=== PATIENT | male | born 1940 | race Caucasian/White ===

== ENCOUNTER 2018-02-24 07:48 | Day surgery (SDC) | payer OTHER ==
[2018-02-21 18:06] VITALS: BMI 39.1
[2018-02-24 09:49] LABS: ANION GAP 9 MMOL/L (8-16); BLOOD UREA NITROGEN 61 mg/dL (7-18); CALCIUM 8.9 mg/dL (8.5-10.1); CHLORIDE 111 mmol/L (98-107); CO2 23 mmol/L (21-32); CREATININE 4.2 mg/dL (0.55-1.3); GLUCOSE,RANDOM 124 mg/dL (74-106); POTASSIUM 4.2 mmol/L (3.5-5.1); SODIUM 143 mmol/L (136-145)
--- NOTE | 2018-02-24 11:34 | HP ---
History & Physical Update - History History: No Change - Physical Physical: No Change - Assessment Currently as noted:: Malfunction of recently placed PD catheter - Plan Currently as noted:: Replacement of PD catheter
[2018-02-24] MEDS ORDERED: PROPOFOL 20 ML ONE (11:40)
[2018-02-24] MEDS ORDERED: MIDAZOLAM HCL 2 MG/2 ML SINGLE DOSE VIAL ONE (11:40)
[2018-02-24] MEDS ORDERED: oxyCODONE HCL 5 MG TABLET PO PRN ×2 (11:45→14:06)
[2018-02-24] MEDS ORDERED: PROMETHAZINE HCL 25 MG/1 ML VIAL IVPUSH PRN (11:45)
[2018-02-24] MEDS ORDERED: ONDANSETRON 4 MG/2 ML VIAL IVPUSH PRN (11:45)
[2018-02-24] MEDS ORDERED: ROCURONIUM BROMIDE 50 MG/5 ML VIAL ONE (11:54)
[2018-02-24] MEDS ORDERED: CLINDAMYCIN 300 MG PREMIX BAG IVPB ONE (12:01)
[2018-02-24] MEDS ORDERED: CLINDAMYCIN PHOSPHATE 600 MG/4 ML VIAL ONE (12:02)
[2018-02-24] MEDS ORDERED: BUPIVACAINE HCL/PF 0.5% (5MG/ML) 10 ML VIAL ONE (12:02)
[2018-02-24] MEDS ORDERED: BUPIVACAINE HCL/PF 0.5% (5MG/ML) 10 ML VIAL IJ ONE (12:30)
[2018-02-24] MEDS ORDERED: BACITRACIN 15 GM TUBE TOPICAL OINTMENT ONE (13:33)
--- NOTE | 2018-02-24 13:55 | OP ---
Operative Note - Note: Operative Date: 02/24/18 Pre-Operative Diagnosis: Renal failure, malfunctioning PD catheter Operation: Removal PD catheter. Placement PD catheter. Lysis of adhesions Findings: Intrabdominal adhesion around PD catheter Implants: PD catheter Post-Operative Diagnosis: Same as Pre-op Surgeon: Herman Navarro Electrical Engineering Teacher: Adelaida Hernandez Anesthesiologist/EPIDEMIOLOGIST: Reymundo Brooks Anesthesia: General
[2018-02-24] MEDS ORDERED: ACETAMINOPHEN 325 MG TABLET (FP) PO PRN (14:06)
[2018-02-24] MEDS ORDERED: ONDANSETRON 4 MG/2 ML VIAL ONE ×2 (14:41→15:40)
[2018-02-24] MEDS ORDERED: ONDANSETRON 4 MG/2 ML VIAL IVPUSH ONE (15:53)
[2018-02-24] MEDS ORDERED: METOCLOPRAMIDE HCL INJECTION 10 MG/2 ML VIAL ONE (17:07)
[2018-02-24] MEDS ORDERED: METOCLOPRAMIDE HCL INJECTION 10 MG/2 ML VIAL IVPUSH ONE (17:17)
[2018-02-24 18:45] VITALS: BP 114/63; PULSE 77; TEMP 97.5
--- NOTE | 2018-02-26 14:21 | OP ---
DATE OF OPERATION: 02/24/2018 SURGEON: Herman Toney MD RETAIL DELIVERY DRIVER: EMETERIO Meade PROCEDURES: 1. Laparoscopy. 2. Lysis of adhesions. 3. Placement of peritoneal dialysis catheter and removal of old peritoneal dialysis catheter. PREOPERATIVE DIAGNOSIS: 1. Malfunctioning peritoneal dialysis catheter. 2. Renal failure. POSTOPERATIVE DIAGNOSIS: 1. Malfunctioning peritoneal dialysis catheter. 2. Renal failure. 3. Intraabdominal adhesions. ANESTHESIA: General. ANESTHESIOLOGIST: Reymundo Brooks MD OPERATIVE FINDINGS: The previous peritoneal dialysis catheter was encased in adhesions of fatty tissue between the anterior abdominal wall and the large intestine. There were no other significant adhesions noted but there was abundant adipose tissue along the abdominal wall. OPERATIVE PROCEDURE: Following routine patient identification, general anesthesia was induced. A timeout was performed. A Veress needle was inserted atraumatically through the umbilicus. Pneumoperitoneum was established at 15 mmHg pressure with carbon dioxide. A 5-mm Optiview port was then placed in the mid-line below the xiphoid process. Abdominal exploration was then carried out. A second 5-mm port was placed in the left abdominal wall. An atraumatic grasper was used to pull the PD catheter out of the pelvis and out of the adhesions. It was then able to be flushed. The catheter returned to its normal position in the pelvis. The pneumoperitoneum was evacuated and one liter of saline was run in through the catheter. When the bag was dropped to the floor, a very little fluid drained out and it was felt that this catheter would not be functional. Therefore, pneumoperitoneum was reestablished. Adhesions of fatty tissue in the pelvis were divided with a LigaSure device to free up the pelvic area. An 8-mm bladeless trocar was then advanced through a small incision to the right of the umbilicus to the underside of the peritoneum and then directed distally to enter the peritoneal cavity approximately 6 cm from these. A new curled Tenckhoff catheter was then straightened with a wire and advanced into the pelvis in a position where it appeared to have better access for drainage. The 8-mm port was removed, leaving the inner cuff just at the level of the fascia. An incision was then made on the upper aspect of the abdomen. An extension segment was attached to the new dialysis catheter with a titanium adapter which was secured with 2-0 silk ties. Extension tubing was then pulled through a tunneler between the two incisions. It was attached to a curved metal tunneler which was then brought out in the right upper quadrant at the previously marked skin site. The Luer Lock adapter was attached and again, after removing the gas from the abdomen, one liter of saline was run in and then the bag was dropped. The bag was seen to drain approximately 500 mL and was capped. The skin incisions were then closed with interrupted suture of 3-0 Vicryl and subcuticular suture of Biosyn. The old catheter was then removed by reopening the paraumbilical incision and the nichelle from the subcutaneous tissues. These wounds were also closed with sutures of Vicryl and Biosyn. Sterile dressings were applied. The catheter site was dressed with Bio-occlusive dressing and an ABD pad. The patient was then taken to the recovery room in stable condition. HERMAN TONEY M.D. RONALDO/[id number]
== END 2018-02-24 18:25 | disposition home or self-care (01) ==
LOC: JASU-SURG 07:48
PROVIDERS: ATTEND Surgery
PROC: 0WHG43Z Insertion of Infusion Device into Peritoneal Cavity, Percutaneous Endoscopic Approach (ICD-10-PCS; principal; 2018-02-24 10:00)
DX: T85.898A Other specified complication of other internal prosthetic devices, implants and grafts, initial encounter (principal); I12.0 Hypertensive chronic kidney disease with stage 5 chronic kidney disease or end stage renal disease; N18.6 End stage renal disease; Z99.2 Dependence on renal dialysis
CPT/HCPCS: 36415; 80048; 94760

== ENCOUNTER 2018-03-19 08:49 | Day surgery (SDC) | payer OTHER ==
[2018-03-18 14:02] VITALS: BMI 39.1
--- NOTE | 2018-03-19 11:12 | HP ---
History & Physical Update - History History: No Change - Physical Physical: No Change - Assessment Assessment: No Change - Plan Plan: No Change (Full H&P in chart done on 03/17/18)
--- NOTE | 2018-03-19 11:39 | HP ---
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 Previously placed PD catheter not draining. History Source: Patient - Past Medical History Allergies/Adverse Reactions: Allergies Allergy/AdvReac Type Severity Reaction Status Date / Time Penicillins Allergy Intermediate Hives Verified 03/19/18 09:29 Renal/: Yes: Renal Failure - Current Medications Current Medications: Home Medications Medication Instructions Recorded Atorvastatin Ca [Lipitor] 40 mg PO HS 02/21/18 Cholecalciferol (Vitamin D3) 1 cap PO DAILY 02/21/18 [Vitamin D3] Febuxostat [Uloric] 40 mg PO DAILY 02/21/18 Furosemide [Lasix] 80 mg PO DAILY 02/21/18 Potassium Citrate 10 meq PO HS 02/21/18 Tamsulosin HCl 0.4 mg PO HS 02/21/18 Fluticasone/Vilanterol [Breo 1 puff IH DAILY 03/18/18 Ellipta 100-25 Mcg INH] Satellite Physical Exam - Physical Examination Vital Signs: Vital Signs Period Temp Pulse Resp BP Sys/Berumen Pulse Ox Last 24 Hr 98.3 F 70 20 136/73 93 General Appearance: Obese ENT: Clear Lung: Clear to auscultation Heart: Regular rate & rhythm Abdomen: Soft, Other (Wounds healing well) Extremities: No edema Satellite Impression/Plan - Impression/Plan Impression: Malfunction PD catheter Operative Procedure: Laparoscopy, revision PD catheter, excision fatty tissue
[2018-03-19] MEDS ORDERED: MIDAZOLAM HCL 2 MG/2 ML SINGLE DOSE VIAL ONE (11:51)
[2018-03-19] MEDS ORDERED: DEXAMETHASONE SOD PHOSPHATE 4 MG/1 ML VIAL ONE ×2 (11:51→13:02)
[2018-03-19] MEDS ORDERED: LIDOCAINE HCL/PF 2% SDV 5ML VIAL ONE (11:51)
[2018-03-19] MEDS ORDERED: BUPIVACAINE HCL/PF 0.5% (5MG/ML) 10 ML VIAL ONE (11:54)
[2018-03-19] MEDS ORDERED: PROPOFOL 20 ML ONE (12:12)
[2018-03-19] MEDS ORDERED: ROCURONIUM BROMIDE 50 MG/5 ML VIAL ONE (12:12)
[2018-03-19] MEDS ORDERED: CLINDAMYCIN 600 MG PREMIX BAG IVPB ONE ×2 (12:16→12:20)
[2018-03-19] MEDS ORDERED: CLINDAMYCIN PHOSPHATE 600 MG/4 ML VIAL ONE (12:20)
[2018-03-19] MEDS ORDERED: ePHEDrine SULFATE 50 MG/1 ML AMPULE ONE (12:24)
[2018-03-19] MEDS ORDERED: PROMETHAZINE HCL 25 MG/1 ML VIAL IVPUSH PRN (12:55)
[2018-03-19] MEDS ORDERED: oxyCODONE HCL 5 MG TABLET PO PRN (12:55)
[2018-03-19] MEDS ORDERED: GLYCOPYRROLATE 0.2 MG/1 ML VIAL ONE (12:58)
[2018-03-19] MEDS ORDERED: NEOSTIGMINE METHYLSULFATE 0.5 MG/ML - 10 ML MDV ONE (12:58)
[2018-03-19] MEDS ORDERED: SODIUM CHLORIDE 1,000 ML IV SCH (13:00)
--- NOTE | 2018-03-19 13:10 | OP ---
Operative Note - Note: Operative Date: 03/19/18 Pre-Operative Diagnosis: Malfunction PD catheter Operation: Revision PD catheter. Laparoscopy Findings: Adhesions surrounding catheter in RLQ. Small bowel and pericolic fat adherent to anterior abdominal wall. Post-Operative Diagnosis: Same as Pre-op Surgeon: Herman Navarro Garage Worker: Jean Claude Lamb Anesthesiologist/ASBESTOS SIDING MECHANIC: Daniel Kat Anesthesia: General
--- NOTE | 2018-03-19 13:26 | SURG ---
Surgery Revenue Cycle Manager Note Revenue Cycle Manager: Jean Claude Lamb PA-C Date of Service: 03/19/18 Diagnosis: Malfunction PD catheter Procedure: Revision PD catheter. Laparoscopy I was present for the entirety of the operative procedure. For further detail, please refer to operative report.
[2018-03-19] MEDS ORDERED: ALBUTEROL SO4 0.083% IH SOL 2.5 MG/3 ML VIAL.NEB. NEB ONE (13:45)
[2018-03-19 15:34] VITALS: TEMP 92
[2018-03-19 17:47] VITALS: BP 131/66; PULSE 75
--- NOTE | 2018-03-22 10:41 | OP ---
DATE OF OPERATION: 03/19/2018 SURGEON: Herman Navarro MD FRONT LOAD TRASH TRUCK DRIVER: EMETERIO Peterson PROCEDURE: Revision of peritoneal dialysis catheter, laparoscopy. PREOPERATIVE DIAGNOSIS: Malfunctioning peritoneal dialysis catheter. POSTOPERATIVE DIAGNOSIS: Malfunctioning peritoneal dialysis catheter. ANESTHESIA: General. ANESTHESIOLOGIST: Daniel Kat MD OPERATIVE FINDINGS: The previously placed peritoneal catheter was encircled with adhesions. There were adhesions of small bowel and fatty tissue to the anterior abdominal wall mainly in the right lower quadrant of the abdomen where the catheter was present. The remainder of the peritoneal catheter had a few filmy adhesions to the midline, but otherwise, was free of scar tissue. OPERATIVE PROCEDURE: Following routine patient identification, general anesthesia was induced. The abdomen was prepped with ChloraPrep. The peritoneal dialysis catheter was additionally prepped at the end with Betadine solution. An attempt to insufflate gas through the catheter met with resistance. Therefore, the Veress needle was inserted through the umbilicus, and pneumoperitoneum established with carbon dioxide to 15 mmHg pressure. A 5-mm port was then placed in the midline above the umbilicus. A 5-mm angled laparoscope was inserted, and abdominal exploration was carried out. A 2nd 5-mm port was placed in the left lower quadrant under direct vision. Using atraumatic grasper, the peritoneal dialysis catheter was retracted from the adhesions back into the free area of the peritoneal cavity. It was able to be positioned in the left lower quadrant area of the pelvis. Careful inspection of the adhesions showed that there were areas of adherence of small bowel loops directly to the abdominal wall, and decision was made not to disturb these for fear of damage to the bowel as well as inciting new adhesions to form around the catheter. Pneumoperitoneum was evacuated. Then 2 L of saline were then run into the peritoneal cavity under gravity drainage with no evidence of resistance. Drainage of the fluid by lowering the bag to the floor level was brisk with approximately 1500 mL evacuated in under 5 minutes. It was felt that the catheter was in a good position and appeared to be functioning well, and decision was made to complete the procedure. The ports were removed. The fascial holes were closed with [id number] sutures of 0 Vicryl. The skin incisions were closed with subcuticular sutures of 3-0 Vicryl and subcuticular 4-0 Biosyn. Dermabond glue was applied as a dressing, and the patient was extubated and taken to the recovery room in stable condition. Halie CENTENO/[id number]
== END 2018-03-19 17:30 | disposition home or self-care (01) ==
LOC: JASU-SURG 08:49
PROVIDERS: ATTEND Surgery
PROC: 0WHG43Z Insertion of Infusion Device into Peritoneal Cavity, Percutaneous Endoscopic Approach (ICD-10-PCS; principal; 2018-03-19 10:30)
DX: T82.898A Other specified complication of vascular prosthetic devices, implants and grafts, initial encounter (principal); I12.0 Hypertensive chronic kidney disease with stage 5 chronic kidney disease or end stage renal disease; N18.6 End stage renal disease
CPT/HCPCS: 94760

== ENCOUNTER 2018-06-09 14:19 | Day surgery (SDC) | payer OTHER ==
[2018-06-06 17:35] VITALS: BMI 39.1
--- NOTE | 2018-06-09 15:44 | HP ---
[facility] - Chief Complaint History of Present Illness: 78 year old man with ESRD on PD who developed loss of vision in his right eye. No headaches. ESR and CRP elevated. History Source: Patient, Medical Record - Past Medical History Allergies/Adverse Reactions: Allergies Allergy/AdvReac Type Severity Reaction Status Date / Time Penicillins Allergy Severe Hives Verified 06/06/18 17:51 Cardiovascular: Yes: HTN Renal/: Yes: Renal Failure - Current Medications Current Medications: Home Medications Medication Instructions Recorded Atorvastatin Ca [Lipitor] 40 mg PO HS 02/21/18 Cholecalciferol (Vitamin D3) 1 cap PO DAILY 02/21/18 [Vitamin D3] Potassium Citrate 10 meq PO HS 02/21/18 Tamsulosin HCl 0.4 mg PO HS 02/21/18 Fluticasone/Vilanterol [Breo 1 puff IH DAILY 03/18/18 Ellipta 100-25 Mcg INH] Prednisone [Prednisone 50 MG 50 mg PO DAILY 06/09/18 TABLETS] Torsemide 100 mg PO DAILY 06/09/18 Satellite Physical Exam - Physical Examination Vital Signs: Vital Signs Period Temp Pulse Resp BP Sys/Berumen Pulse Ox Last 24 Hr 97.9 F 68 20 127/69 95 General Appearance: Obese ENT: Clear Lung: Clear to auscultation Heart: Regular rate & rhythm Abdomen: Soft, Other (PD catheter in place) Extremities: No edema Neurological: Alert, Oriented, Cran Nerves II-XII Intact Satellite Impression/Plan - Impression/Plan Impression: R/O giant cell arteritis Operative Procedure: Right temporal artery biopsy Date to be Performed: 06/09/18
[2018-06-09] MEDS ORDERED: PROPOFOL 20 ML ONE (15:52)
[2018-06-09] MEDS ORDERED: MIDAZOLAM HCL 2 MG/2 ML SINGLE DOSE VIAL ONE (15:52)
[2018-06-09] MEDS ORDERED: SUCCINYLCHOLINE CHLORIDE 200 MG/10 ML VIAL ONE (15:55)
[2018-06-09] MEDS ORDERED: oxyCODONE HCL 5 MG TABLET PO PRN (16:07)
[2018-06-09] MEDS ORDERED: ONDANSETRON 4 MG/2 ML VIAL IVPUSH PRN (16:07)
[2018-06-09] MEDS ORDERED: LIDOCAINE HCL 1%, 10 MG/ML (20ML VIAL) ONE (16:14)
[2018-06-09] MEDS ORDERED: LACTATED RINGERS SOLUTION 1,000 ML IV SCH (16:15)
[2018-06-09] MEDS ORDERED: ACETAMINOPHEN 325 MG TABLET (FP) PO PRN (16:47)
--- NOTE | 2018-06-09 16:47 | OP ---
Operative Note - Note: Operative Date: 06/09/18 Pre-Operative Diagnosis: Temporal arteritis Operation: Right temporal artery biopsy Findings: Normal appearing artery Post-Operative Diagnosis: Same as Pre-op Surgeon: Herman Navarro Anesthesiologist/VENEER STAPLER: Amber Gloria Anesthesia: Fractional Specimens Removed: Portion right temporal artery Estimated Blood Loss (mls): 25
[2018-06-09] MEDS ORDERED: LIDOCAINE HCL 1%, 10 MG/ML (20ML VIAL) PNB ONE (16:49)
[2018-06-09 17:09] VITALS: TEMP 98
[2018-06-09 17:52] VITALS: BP 128/71; PULSE 70
--- NOTE | 2018-06-10 12:19 | OP ---
DATE OF OPERATION: 06/09/2018 SURGEON: Herman Toney MD PROCEDURE: Biopsy right temporal artery. PREOPERATIVE DIAGNOSIS: Rule out temporal arteritis. POSTOPERATIVE DIAGNOSIS: Rule out temporal arteritis. ANESTHESIA: Fractional. ANESTHESIOLOGIST: ZHAO Glroia OPERATIVE FINDINGS: The right superficial temporal artery was normal in appearance and size. There was no evidence of arteritis grossly. DESCRIPTION OF PROCEDURE: Following routine patient identification, the skin of the right mu-ism was prepped with Betadine solution. Time-out was performed. Then 1% lidocaine was infiltrated over the palpable pulse in the superficial temporal artery at the hairline. Skin incision was made and carried through subcutaneous tissues using cautery for hemostasis. The superficial temporal artery was then mobilized for approximately 2 cm of length. It was ligated proximally and distally. Side branches were also ligated and divided. A section of the artery was then removed and sent to Pathology. The wound was closed with interrupted sutures of 4-0 Vicryl and subcutaneous tissues and running subcuticular suture of 4-0 Biosyn on the skin. Dermabond glue was applied as a dressing, and the patient was taken to the recovery room in stable condition. HERMAN TONEY M.D. [id number]
--- NOTE | 2018-06-11 17:29 | PATH ---
Surgical Pathology Report Patient Name: PETER HOLLOWAY Med. Rec. #: [id number] /Age/Gender: 1940 (Age: 78) / M Account: [id number] Location: [facility] SURGICAL Taken: 06/09/2018 Received: 06/10/2018 Reported: 06/11/2018 Physicians: Herman Navarro M.D. Specimen(s) Received TEMPORAL ARTERY BIOPSY Clinical History Giant cell arteritis Final Diagnosis TEMPORAL ARTERY, BIOPSY: MUSCULAR ARTERY WITH NO EVIDENCE OF ARTERITIS. MULTIPLE LEVELS EXAMINED. Electronically Signed Emma Gaffney M.D. Gross Description Received in formalin labeled "temporal artery," are 2 schmid portions of vascular tissue, consistent with temporal artery biopsies. The specimens measure 0.6 and 1.2 cm in length. The specimens are cross sectioned and entirely submitted in one cassette. /06/10/2018 saudi06/10/2018
== END 2018-06-09 17:50 | disposition home or self-care (01) ==
LOC: JASU-SURG 14:19
PROVIDERS: ATTEND Surgery
PROC: 03BS0ZX Excision of Right Temporal Artery, Open Approach, Diagnostic (ICD-10-PCS; principal; 2018-06-09 16:00)
DX: M31.6 Other giant cell arteritis (principal)
CPT/HCPCS: 88305-TC

== ENCOUNTER 2020-11-27 08:46 | Inpatient (IN) | payer OTHER ==
[2020-11-27] MEDS ORDERED: ACETAMINOPHEN 1000 MG/100 ML VIAL (NON FORMULARY) IVPB ONE (09:06)
[2020-11-27 09:17] VITALS: BMI 37.3
[2020-11-27] MEDS ORDERED: LACTATED RINGERS SOLUTION 1000 ML INFUS.BAG IV ONE (09:20)
[2020-11-27] MEDS ORDERED: CEFEPIME HCL/D5W 1 GM/50 ML BAG IVPB ONE (09:28)
[2020-11-27] MEDS ORDERED: ACETAMINOPHEN INJECTION 100 ML IVPB ONE (09:34)
[2020-11-27] MEDS ORDERED: CEFEPIME 1 GM/100 ML BAG IVPB ONE (09:35)
[2020-11-27 10:48] LABS: BASO % 0.9 % (0-2.0); EOS % 0.5 % (0-4.5); HEMATOCRIT 37.6 % (35.4-49); HEMOGLOBIN 12.5 GM/dL (11.7-16.9); LYMPH % 10.7 % (8-40); MCH 31.1 pg (25.7-33.7); MCHC 33.2 g/dl (32.0-35.9); MEAN CELL VOLUME 93.8 fl (80-96); MEAN PLT VOLUME 9.3 fl (7.5-11.1); MONO % 9.1 % (3.8-10.2); NEUT % 78.8 % (42.8-82.8); PLATELET COUNT 305 10^3/uL (134-434); RBC 4.01 M/mm3 (4.00-5.60); RDW 15.1 % (11.9-15.9); WHITE BLOOD COUNT 18.8 K/mm3 (4.0-10.0)
[2020-11-27 10:53] LABS: INR 1.02 (0.83-1.09); PROTHROMBIN TIME (PATIENT) 12.5 SEC (9.7-13.0)
[2020-11-27 10:55] LABS: ACTIVATED PTT 23.8 SECONDS (25.2-36.5)
[2020-11-27 11:07] LABS: CHLORIDE 94 mmol/L (98-107); SODIUM 132 mmol/L (136-145)
[2020-11-27 11:10] LABS: ALBUMIN 2.4 g/dl (3.4-5.0); ANION GAP 14 MMOL/L (8-16); BLOOD UREA NITROGEN 34.7 mg/dL (7-18); CALCIUM 8.7 mg/dL (8.5-10.1); CO2 24 mmol/L (21-32)
[2020-11-27 11:11] LABS: GLUCOSE,RANDOM 160 mg/dL (74-106)
[2020-11-27 11:13] LABS: SGOT/AST 19 U/L (15-37); SGPT/ALT 19 U/L (13-61)
[2020-11-27 11:15] LABS: BILIRUBIN,TOTAL 0.7 mg/dL (0.2-1)
[2020-11-27 11:16] LABS: ALK PHOS 161 U/L (45-117)
[2020-11-27 11:21] LABS: LACTIC ACID 2.8 mmol/L (0.4-2.0)
[2020-11-27 11:22] LABS: CREATININE 9.6 mg/dL (0.55-1.3)
[2020-11-27] MEDS ORDERED: POTASSIUM CHLORIDE TABS 20 MEQ TABLET.ER (FP) PO ONE (12:25)
[2020-11-27] MEDS ORDERED: ACETAMINOPHEN 325 MG TABLET (FP) PO PRN (13:42)
[2020-11-27] MEDS ORDERED: LACTULOSE 20 GM/30 ML UDC (FOR ORAL USE ONLY) PO ONE (15:10)
[2020-11-27] MEDS: PERITONEAL DIALYSIS 1.5% SOLN 2,500 ML IP SCH ×2 (15:30→22:00)
[2020-11-27 15:47] LABS: LACTIC ACID 2.1 mmol/L (0.4-2.0)
[2020-11-27] MEDS ORDERED: ASPIRIN 325 MG ENTERIC COATED TABLET (FP) ONE (15:54)
[2020-11-27] MEDS ORDERED: LACTULOSE 20 GM/30 ML UDC (FOR ORAL USE ONLY) ONE (15:54)
[2020-11-27] MEDS: ASPIRIN 325 MG TABLET PO SCH (16:01)
[2020-11-27] MEDS: TIOTROPIUM BROMIDE 2.5 MCG (SPIRIVA) RESPIMAT INHALER IH SCH (16:01)
[2020-11-27 18:30] LABS: BF WBC & OTHER NUCLEATED CELLS 84 /mm3
[2020-11-27 19:10] LABS: BODY FLUID MACROPHAGES 67 %; BODY FLUID MONOCYTE 18 %
[2020-11-27] MEDS ORDERED: CHLORHEXIDINE GLUCONATE 4% CLEANSER FOR DECOLONIZATION TP SCH (22:00)
[2020-11-27] MEDS: HEPARIN NA (PORCINE) 5,000 UNITS/ML 1ML VIAL SQ SCH (22:23)
[2020-11-27] MEDS: ATORVASTATIN CA 40 MG TABLET (FP) PO SCH (22:23)
[2020-11-28] MEDS: PERITONEAL DIALYSIS 1.5% SOLN 2,500 ML IP SCH ×4 (03:37→22:29)
[2020-11-28 07:33] LABS: BASO % 0.6 % (0-2.0); EOS % 2.4 % (0-4.5); HEMATOCRIT 34.1 % (35.4-49); HEMOGLOBIN 11.3 GM/dL (11.7-16.9); LYMPH % 16.5 % (8-40); MCHC 33.1 g/dl (32.0-35.9); MEAN CELL VOLUME 93.6 fl (80-96); MEAN PLT VOLUME 8.5 fl (7.5-11.1); NEUT % 71.5 % (42.8-82.8); PLATELET COUNT 267 10^3/uL (134-434); RBC 3.64 M/mm3 (4.00-5.60); RDW 14.9 % (11.9-15.9); WHITE BLOOD COUNT 15.2 K/mm3 (4.0-10.0)
[2020-11-28 07:41] LABS: CHLORIDE 95 mmol/L (98-107); SODIUM 133 mmol/L (136-145)
[2020-11-28 07:49] LABS: ANION GAP 12 MMOL/L (8-16); CALCIUM 8.3 mg/dL (8.5-10.1); CO2 26 mmol/L (21-32)
[2020-11-28 07:50] LABS: BLOOD UREA NITROGEN 39.8 mg/dL (7-18); GLUCOSE,RANDOM 126 mg/dL (74-106); MAGNESIUM 1.7 mg/dL (1.8-2.4)
[2020-11-28 07:52] LABS: CHOLESTEROL 153 mg/dL (50-200)
[2020-11-28 07:53] LABS: PHOSPHOROUS 6.1 mg/dL (2.5-4.9); TRIGLYCERIDES 191 mg/dL (0-150)
[2020-11-28 07:54] LABS: HDL CHOLESTEROL 36 mg/dL (40-60); LDL CHOLESTEROL (ONLY SJRH) 83 mg/dL (5-100)
[2020-11-28 08:35] LABS: CREATININE 10.1 mg/dL (0.55-1.3)
[2020-11-28] MEDS ORDERED: PT OWN MED DRAWER 7, Y5N ONE ×2 (09:31→21:01)
[2020-11-28] MEDS: HEPARIN NA (PORCINE) 5,000 UNITS/ML 1ML VIAL SQ SCH ×2 (09:49→21:03)
[2020-11-28] MEDS: TAMSULOSIN HCL 0.4 MG CAP PO SCH (09:49)
[2020-11-28] MEDS: ASPIRIN 325 MG TABLET PO SCH (09:49)
[2020-11-28] MEDS ORDERED: VANCOMYCIN 1 GRAM (PRE-DOCKED) 1,000 MG/250 ML BAG IVPB ONE (11:00)
[2020-11-28] MEDS ORDERED: CEFEPIME HCL 1 GM VIAL (RESTRICTED TO ID) ONE (11:24)
[2020-11-28] MEDS ORDERED: DEXTROSE 5%-WATER 100 ML IVPB ONE (11:25)
[2020-11-28] MEDS: TIOTROPIUM BROMIDE 2.5 MCG (SPIRIVA) RESPIMAT INHALER IH SCH (11:28)
[2020-11-28] MEDS: BUDESONIDE/FORMETEROL FUMARATE 80/4.5 mcg INHALER IH SCH ×2 (11:28→21:04)
[2020-11-28] MEDS: CEFEPIME 1 GM in DEXTROSE 5%-WATER 1 GM/100 ML BAG IVPB SCH (11:29)
[2020-11-28] MEDS ORDERED: GENTAMICIN SO4 0.1% TOPICAL OINTMENT 15 GM/TUBE TUBE TP ONE (12:45)
[2020-11-28] MEDS: MAGNESIUM CL 64 MG TABLET.SA PO SCH (14:06)
[2020-11-28] MEDS: metroNIDAZOLE 500 MG TABLET PO SCH ×2 (14:07→21:03)
[2020-11-28] MEDS: SEVELAMER CARBONATE 800 MG TAB (FP) PO SCH (17:09)
[2020-11-28] MEDS ORDERED: TORSEMIDE 100 MG TABLET PO SCH ×2 (17:15→22:00)
[2020-11-28] MEDS: TORSEMIDE 100 MG TABLET PO SCH (18:09)
[2020-11-28] MEDS: ATORVASTATIN CA 40 MG TABLET (FP) PO SCH (21:03)
[2020-11-28] MEDS: PREGABALIN 25 MG CAPSULE PO SCH (21:03)
[2020-11-28] MEDS ORDERED: CINACALCET HCL 30 MG TAB (FP) PO SCH (22:00)
[2020-11-28] MEDS ORDERED: PREGABALIN 50 MG CAPSULE PO SCH (22:00)
[2020-11-29] MEDS: PERITONEAL DIALYSIS 1.5% SOLN 2,500 ML IP SCH ×4 (04:45→22:39)
[2020-11-29] MEDS ORDERED: SODIUM CHLORIDE 250 ML IV STA (05:34)
[2020-11-29] MEDS: metroNIDAZOLE 500 MG TABLET PO SCH ×3 (05:57→21:08)
[2020-11-29] MEDS: TORSEMIDE 100 MG TABLET PO SCH (07:01)
[2020-11-29] MEDS: TAMSULOSIN HCL 0.4 MG CAP PO SCH (08:27)
[2020-11-29] MEDS: SEVELAMER CARBONATE 800 MG TAB (FP) PO SCH ×3 (08:27→17:18)
[2020-11-29 08:30] LABS: BASO % 0.6 % (0-2.0); EOS % 0.5 % (0-4.5); HEMATOCRIT 34.4 % (35.4-49); HEMOGLOBIN 11.2 GM/dL (11.7-16.9); LYMPH % 8.7 % (8-40); MCH 30.8 pg (25.7-33.7); MCHC 32.6 g/dl (32.0-35.9); MEAN CELL VOLUME 94.6 fl (80-96); MEAN PLT VOLUME 9.1 fl (7.5-11.1); MONO % 8.1 % (3.8-10.2); NEUT % 82.1 % (42.8-82.8); PLATELET COUNT 308 10^3/uL (134-434); RBC 3.63 M/mm3 (4.00-5.60); WHITE BLOOD COUNT 23.1 K/mm3 (4.0-10.0)
[2020-11-29 08:53] LABS: CHLORIDE 94 mmol/L (98-107); SODIUM 133 mmol/L (136-145)
[2020-11-29 09:05] LABS: GLUCOSE,RANDOM 176 mg/dL (74-106)
[2020-11-29 09:06] LABS: BLOOD UREA NITROGEN 36.9 mg/dL (7-18); PHOSPHOROUS 5.3 mg/dL (2.5-4.9)
[2020-11-29 09:07] LABS: BILIRUBIN,TOTAL 0.4 mg/dL (0.2-1)
[2020-11-29] MEDS ORDERED: DEXTROSE 5%-WATER 100 ML IVPB ONE (09:07)
[2020-11-29] MEDS ORDERED: CEFEPIME HCL 1 GM VIAL (RESTRICTED TO ID) ONE ×2 (09:07→09:54)
[2020-11-29 09:08] LABS: ALK PHOS 157 U/L (45-117); ANION GAP 13 MMOL/L (8-16); CO2 26 mmol/L (21-32); MAGNESIUM 1.7 mg/dL (1.8-2.4)
[2020-11-29 09:09] LABS: SGOT/AST 24 U/L (15-37); SGPT/ALT 17 U/L (13-61)
[2020-11-29 09:16] LABS: ALBUMIN 1.9 g/dl (3.4-5.0); CREATININE 9.6 mg/dL (0.55-1.3)
[2020-11-29] MEDS: HEPARIN NA (PORCINE) 5,000 UNITS/ML 1ML VIAL SQ SCH ×2 (10:29→21:08)
[2020-11-29] MEDS: CEFEPIME 1 GM in DEXTROSE 5%-WATER 1 GM/100 ML BAG IVPB SCH (10:29)
[2020-11-29] MEDS: ASPIRIN 325 MG TABLET PO SCH (10:29)
[2020-11-29] MEDS: TIOTROPIUM BROMIDE 2.5 MCG (SPIRIVA) RESPIMAT INHALER IH SCH (10:30)
[2020-11-29] MEDS: BUDESONIDE/FORMETEROL FUMARATE 80/4.5 mcg INHALER IH SCH ×2 (10:30→21:09)
[2020-11-29] MEDS: MAGNESIUM CL 64 MG TABLET.SA PO SCH (10:30)
[2020-11-29] MEDS: CHOLECALCIFEROL (VIT D3) 5000 UNITS (125 MCG) CAP PO SCH (10:31)
[2020-11-29 11:00] LABS: ANISOCYTOSIS 0; MACROCYTOSIS 0; PLATELET ESTIMATE NORMAL
[2020-11-29] MEDS ORDERED: LACTATED RINGERS SOLUTION 1000 ML INFUS.BAG IV ONE (11:51)
[2020-11-29] MEDS: POTASSIUM CHLORIDE TABS 20 MEQ TABLET.ER (FP) PO SCH (14:28)
[2020-11-29] MEDS ORDERED: VANCOMYCIN 1 GRAM (PRE-DOCKED) 1,000 MG/250 ML BAG IVPB ONE (15:37)
[2020-11-29] MEDS ORDERED: PT OWN MED DRAWER 7, Y5N ONE ×2 (15:52→21:03)
[2020-11-29] MEDS: MIDODRINE HCL 2.5 MG TABLET PO SCH ×2 (15:57→18:23)
[2020-11-29] MEDS: ATORVASTATIN CA 40 MG TABLET (FP) PO SCH (21:08)
[2020-11-29] MEDS: PREGABALIN 25 MG CAPSULE PO SCH (21:09)
[2020-11-30] MEDS: PERITONEAL DIALYSIS 1.5% SOLN 2,500 ML IP SCH (05:00)
[2020-11-30] MEDS: metroNIDAZOLE 500 MG TABLET PO SCH ×3 (05:44→21:18)
[2020-11-30 07:38] LABS: HEMATOCRIT 31.5 % (35.4-49); HEMOGLOBIN 10.4 GM/dL (11.7-16.9); MCH 30.8 pg (25.7-33.7); MCHC 33.1 g/dl (32.0-35.9); MEAN CELL VOLUME 93.3 fl (80-96); MEAN PLT VOLUME 8.7 fl (7.5-11.1); PLATELET COUNT 314 10^3/uL (134-434); RBC 3.38 M/mm3 (4.00-5.60); RDW 14.8 % (11.9-15.9); WHITE BLOOD COUNT 18.4 K/mm3 (4.0-10.0)
[2020-11-30 07:56] LABS: CHLORIDE 93 mmol/L (98-107); SODIUM 130 mmol/L (136-145)
[2020-11-30 08:07] LABS: ALBUMIN 1.9 g/dl (3.4-5.0); ANION GAP 14 MMOL/L (8-16); BLOOD UREA NITROGEN 39.8 mg/dL (7-18); CALCIUM 8.1 mg/dL (8.5-10.1); CO2 23 mmol/L (21-32); GLUCOSE,RANDOM 161 mg/dL (74-106)
[2020-11-30 08:08] LABS: MAGNESIUM 1.3 mg/dL (1.8-2.4)
[2020-11-30 08:10] LABS: PHOSPHOROUS 4.7 mg/dL (2.5-4.9); SGOT/AST 18 U/L (15-37); SGPT/ALT 15 U/L (13-61)
[2020-11-30 08:12] LABS: BILIRUBIN,TOTAL 0.4 mg/dL (0.2-1); TOT PROT 6.2 g/dl (6.4-8.2)
[2020-11-30 08:13] LABS: ALK PHOS 166 U/L (45-117)
[2020-11-30 08:36] LABS: CREATININE 9.3 mg/dL (0.55-1.3)
[2020-11-30] MEDS: SEVELAMER CARBONATE 800 MG TAB (FP) PO SCH ×3 (08:36→17:05)
[2020-11-30] MEDS: TAMSULOSIN HCL 0.4 MG CAP PO SCH (08:36)
[2020-11-30] MEDS ORDERED: CEFEPIME HCL 1 GM VIAL (RESTRICTED TO ID) ONE (08:56)
[2020-11-30] MEDS ORDERED: ACETAMINOPHEN 325 MG TABLET (FP) ONE (08:56)
[2020-11-30] MEDS ORDERED: DEXTROSE 5%-WATER 100 ML IVPB ONE (08:57)
[2020-11-30] MEDS: POTASSIUM CHLORIDE TABS 20 MEQ TABLET.ER (FP) PO SCH (09:15)
[2020-11-30] MEDS: ASPIRIN 325 MG TABLET PO SCH (09:15)
[2020-11-30] MEDS: CEFEPIME 1 GM in DEXTROSE 5%-WATER 1 GM/100 ML BAG IVPB SCH (09:15)
[2020-11-30] MEDS: HEPARIN NA (PORCINE) 5,000 UNITS/ML 1ML VIAL SQ SCH ×2 (09:15→21:18)
[2020-11-30] MEDS ORDERED: PT OWN MED DRAWER 7, Y5N ONE ×3 (09:17→20:42)
[2020-11-30] MEDS: MIDODRINE HCL 2.5 MG TABLET PO SCH ×3 (09:19→17:05)
[2020-11-30] MEDS: MAGNESIUM CL 64 MG TABLET.SA PO SCH (09:19)
[2020-11-30] MEDS: CHOLECALCIFEROL (VIT D3) 5000 UNITS (125 MCG) CAP PO SCH (09:20)
[2020-11-30] MEDS: BUDESONIDE/FORMETEROL FUMARATE 80/4.5 mcg INHALER IH SCH ×2 (09:20→21:18)
[2020-11-30] MEDS: TIOTROPIUM BROMIDE 2.5 MCG (SPIRIVA) RESPIMAT INHALER IH SCH (09:20)
[2020-11-30 10:34] LABS: ANISOCYTOSIS 1+; MACROCYTOSIS 0; PLATELET ESTIMATE NORMAL; TEAR DROP CELLS 1+
[2020-11-30] MEDS: PERITONEAL DIALYSIS 2.5% SOLN 2,500 ML IP SCH ×3 (11:00→21:24)
[2020-11-30] MEDS ORDERED: VANCOMYCIN/WATER FOR INJ (PEG) 750 MG/150 ML BAG IVPB ONE (16:26)
[2020-11-30] MEDS: PREGABALIN 25 MG CAPSULE PO SCH (21:18)
[2020-11-30] MEDS: ATORVASTATIN CA 40 MG TABLET (FP) PO SCH (21:18)
[2020-12-01] MEDS: PERITONEAL DIALYSIS 2.5% SOLN 2,500 ML IP SCH ×4 (03:10→21:55)
[2020-12-01] MEDS: metroNIDAZOLE 500 MG TABLET PO SCH (06:11)
[2020-12-01 07:09] LABS: HEMATOCRIT 33.6 % (35.4-49); MCH 30.7 pg (25.7-33.7); MCHC 32.8 g/dl (32.0-35.9); MEAN CELL VOLUME 93.7 fl (80-96); MEAN PLT VOLUME 8.5 fl (7.5-11.1); PLATELET COUNT 325 10^3/uL (134-434); RBC 3.58 M/mm3 (4.00-5.60); RDW 14.7 % (11.9-15.9); WHITE BLOOD COUNT 15.9 K/mm3 (4.0-10.0)
[2020-12-01 07:24] LABS: CHLORIDE 96 mmol/L (98-107); SODIUM 133 mmol/L (136-145)
[2020-12-01 07:27] LABS: ALBUMIN 1.8 g/dl (3.4-5.0); ANION GAP 12 MMOL/L (8-16); BLOOD UREA NITROGEN 39.9 mg/dL (7-18); CO2 24 mmol/L (21-32); GLUCOSE,RANDOM 215 mg/dL (74-106)
[2020-12-01 07:29] LABS: CALCIUM 8.4 mg/dL (8.5-10.1)
[2020-12-01 07:30] LABS: MAGNESIUM 1.7 mg/dL (1.8-2.4); PHOSPHOROUS 4.2 mg/dL (2.5-4.9); SGOT/AST 26 U/L (15-37); SGPT/ALT 16 U/L (13-61)
[2020-12-01 07:31] LABS: BILIRUBIN,TOTAL 0.4 mg/dL (0.2-1); TOT PROT 6.1 g/dl (6.4-8.2)
[2020-12-01 07:32] LABS: ALK PHOS 162 U/L (45-117); CREATININE 8.5 mg/dL (0.55-1.3)
[2020-12-01] MEDS ORDERED: CEFEPIME HCL 1 GM VIAL (RESTRICTED TO ID) ONE (09:04)
[2020-12-01] MEDS ORDERED: DEXTROSE 5%-WATER 100 ML IVPB ONE (09:04)
[2020-12-01] MEDS: SEVELAMER CARBONATE 800 MG TAB (FP) PO SCH ×3 (09:10→17:55)
[2020-12-01] MEDS ORDERED: PT OWN MED DRAWER 7, Y5N ONE (09:13)
[2020-12-01] MEDS: MIDODRINE HCL 2.5 MG TABLET PO SCH (09:14)
[2020-12-01] MEDS: BUDESONIDE/FORMETEROL FUMARATE 80/4.5 mcg INHALER IH SCH ×2 (09:14→21:56)
[2020-12-01] MEDS: TIOTROPIUM BROMIDE 2.5 MCG (SPIRIVA) RESPIMAT INHALER IH SCH (09:14)
[2020-12-01] MEDS: CEFEPIME 1 GM in DEXTROSE 5%-WATER 1 GM/100 ML BAG IVPB SCH (09:14)
[2020-12-01] MEDS: POTASSIUM CHLORIDE TABS 20 MEQ TABLET.ER (FP) PO SCH ×2 (09:31→21:55)
[2020-12-01] MEDS: ASPIRIN 325 MG TABLET PO SCH (09:31)
[2020-12-01 09:47] LABS: ANISOCYTOSIS 0; MACROCYTOSIS 0; PLATELET ESTIMATE NORMAL
[2020-12-01] MEDS ORDERED: MIDODRINE HCL 5 MG TABLET PO SCH (10:28)
[2020-12-01] MEDS ORDERED: FUROSEMIDE 40 MG/4 ML INJECTABLE VIAL IVPUSH ONE (11:15)
[2020-12-01 11:25] LABS: ARTERIAL BLD GAS O2 SATURATION 66.4 % (95-98); ARTERIAL BLOOD GAS BASE EXCESS -3.7 mmol/L (-2-2); ARTERIAL BLOOD GAS PO2 40.4 mmHg (80-100); ARTERIAL BLOOD GAS pH 7.249 (7.350-7.450)
[2020-12-01 11:31] LABS: ALLENS TEST POSITIVE
[2020-12-01] MEDS ORDERED: CLINDAMYCIN 600MG PREMIX IVPB 600 MG/50 ML BAG IVPB ONE ×2 (12:10→14:00)
[2020-12-01] MEDS ORDERED: LIDOCAINE HCL 2% (20ML MULTI-DOSE VIAL) ONE ×2 (12:17→12:21)
[2020-12-01] MEDS ORDERED: LIDOCAINE HCL 1%, 10 MG/ML (20ML VIAL) ONE (12:20)
[2020-12-01] MEDS ORDERED: MIDAZOLAM HCL 2 MG/2 ML SINGLE DOSE VIAL ONE (12:23)
[2020-12-01] MEDS ORDERED: LIDOCAINE HCL 2% (50ML VIAL) PNB ONE (12:45)
[2020-12-01] MEDS ORDERED: VANCOMYCIN 1,000 MG VIAL (RESTRICTED TO ID ONLY) ONE (13:03)
[2020-12-01] MEDS ORDERED: SODIUM CHLORIDE 0.9% P/F 10 ML VIAL IJ ONE (13:04)
[2020-12-01] MEDS ORDERED: ONDANSETRON 4 MG/2 ML VIAL IVPUSH PRN (13:35)
[2020-12-01] MEDS ORDERED: SODIUM CHLORIDE 1,000 ML IV SCH (13:45)
[2020-12-01] MEDS ORDERED: ACETAMINOPHEN 325 MG TABLET (FP) PO PRN (14:00)
[2020-12-01] MEDS: TORSEMIDE 100 MG TABLET PO SCH ×2 (14:50→14:53)
[2020-12-01] MEDS: MAGNESIUM CL 64 MG TABLET.SA PO SCH (14:53)
[2020-12-01] MEDS: MIDODRINE HCL 5 MG TABLET PO SCH ×2 (14:54→18:17)
[2020-12-01] MEDS ORDERED: PERITONEAL DIALYSIS 4.25% SOL 2,500 ML IP ONE ×2 (15:00)
[2020-12-01] MEDS: CHOLECALCIFEROL (VIT D3) 5000 UNITS (125 MCG) CAP PO SCH (15:31)
[2020-12-01] MEDS: TAMSULOSIN HCL 0.4 MG CAP PO SCH (15:32)
[2020-12-01] MEDS ORDERED: dilTIAZem HCL 50 MG/10 ML - 10 ML VIAL IVPUSH ONE (16:14)
[2020-12-01] MEDS ORDERED: AMIODARONE HCL 150 MG/3 ML VIAL IVPUSH ONE (16:45)
[2020-12-01] MEDS ORDERED: AMIODARONE HCL INJECTION 150 MG in DEXTROSE 5%-WATER - 100 ML IVPB ONE (16:47)
[2020-12-01] MEDS ORDERED: AMIODARONE IN DEXTROSE,ISO-OSM 150 MG/100 ML BAG IVPB ONE (16:53)
[2020-12-01] MEDS ORDERED: AMIODARONE IN DEXTROSE,ISO-OSM 360 MG/200 ML BAG IVPB SCH (17:00)
[2020-12-01] MEDS: CLINDAMYCIN 600MG PREMIX IVPB 600 MG/50 ML BAG IVPB SCH (18:17)
[2020-12-01] MEDS: HEPARIN NA (PORCINE) 5,000 UNITS/ML 1ML VIAL SQ SCH (21:55)
[2020-12-01] MEDS: MUPIROCIN 2% TOPICAL OINTMENT FOR DECOLONIZATION NS SCH (21:55)
[2020-12-01] MEDS: CHLORHEXIDINE GLUCONATE 4% CLEANSER FOR DECOLONIZATION TP SCH (21:56)
[2020-12-01] MEDS ORDERED: PREGABALIN 25 MG CAPSULE PO SCH (22:00)
[2020-12-01] MEDS ORDERED: POTASSIUM CHLORIDE TABS 20 MEQ TABLET.ER (FP) PO SCH (22:00)
[2020-12-01] MEDS ORDERED: ATORVASTATIN CA 40 MG TABLET (FP) PO SCH (22:00)
[2020-12-01] MEDS ORDERED: AMIODARONE IN DEXTROSE,ISO-OSM 360 MG/200 ML BAG IVPB ONE (23:00)
[2020-12-02] MEDS: MIDODRINE HCL 5 MG TABLET PO SCH ×4 (00:16→17:54)
[2020-12-02] MEDS: CLINDAMYCIN 600MG PREMIX IVPB 600 MG/50 ML BAG IVPB SCH ×3 (02:01→17:53)
[2020-12-02] MEDS: PERITONEAL DIALYSIS 2.5% SOLN 2,500 ML IP SCH ×4 (02:03→20:57)
[2020-12-02] MEDS ORDERED: AMIODARONE IN DEXTROSE,ISO-OSM 360 MG/200 ML BAG IVPB SCH (02:09)
[2020-12-02] MEDS ORDERED: VASOPRESSIN 40 UNITS/100 ML BAG ONE (02:15)
[2020-12-02] MEDS: VASOPRESSIN 40 UNITS/100 ML BAG IV SCH (02:21)
[2020-12-02 06:06] LABS: ARTERIAL BLD GAS O2 SATURATION 93.9 % (95-98); ARTERIAL BLOOD GAS BASE EXCESS -3.3 mmol/L (-2-2); ARTERIAL BLOOD GAS PO2 81.6 mmHg (80-100); ARTERIAL BLOOD GAS pH 7.241 (7.350-7.450)
[2020-12-02 06:11] LABS: ALLENS TEST POSITIVE; VENT RATE 12
[2020-12-02] MEDS ORDERED: PT OWN MED DRAWER 7, Y5N ONE ×2 (06:24→09:52)
[2020-12-02] MEDS: TORSEMIDE 100 MG TABLET PO SCH (06:24)
[2020-12-02 07:12] LABS: BASO % 0.8 % (0-2.0); EOS % 1.7 % (0-4.5); HEMATOCRIT 31.4 % (35.4-49); HEMOGLOBIN 10.4 GM/dL (11.7-16.9); MCH 31.3 pg (25.7-33.7); MCHC 33.1 g/dl (32.0-35.9); MEAN CELL VOLUME 94.6 fl (80-96); MONO % 10.4 % (3.8-10.2); NEUT % 76.1 % (42.8-82.8); PLATELET COUNT 315 10^3/uL (134-434); RBC 3.32 M/mm3 (4.00-5.60); RDW 14.9 % (11.9-15.9); WHITE BLOOD COUNT 16.6 K/mm3 (4.0-10.0)
[2020-12-02 08:10] LABS: ALBUMIN 1.6 g/dl (3.4-5.0); ALK PHOS 138 U/L (45-117); ANION GAP 14 MMOL/L (8-16); BILIRUBIN,TOTAL 0.3 mg/dL (0.2-1); BLOOD UREA NITROGEN 40.2 mg/dL (7-18); CALCIUM 8.2 mg/dL (8.5-10.1); CHLORIDE 96 mmol/L (98-107); CO2 23 mmol/L (21-32); CREATININE 8.4 mg/dL (0.55-1.3); GLUCOSE,RANDOM 270 mg/dL (74-106); MAGNESIUM 1.4 mg/dL (1.8-2.4); PHOSPHOROUS 5.7 mg/dL (2.5-4.9); SGOT/AST 21 U/L (15-37); SGPT/ALT 12 U/L (13-61); SODIUM 133 mmol/L (136-145); TOT PROT 5.6 g/dl (6.4-8.2)
[2020-12-02] MEDS: SEVELAMER CARBONATE 800 MG TAB (FP) PO SCH ×3 (08:17→17:57)
[2020-12-02] MEDS ORDERED: TAMSULOSIN HCL 0.4 MG CAP PO SCH (08:30)
[2020-12-02] MEDS ORDERED: CEFEPIME HCL 1 GM VIAL (RESTRICTED TO ID) ONE (09:52)
[2020-12-02] MEDS ORDERED: DEXTROSE 5%-WATER 100 ML IVPB ONE (09:52)
[2020-12-02] MEDS: MUPIROCIN 2% TOPICAL OINTMENT FOR DECOLONIZATION NS SCH ×2 (09:54→21:05)
[2020-12-02] MEDS: POTASSIUM CHLORIDE TABS 20 MEQ TABLET.ER (FP) PO SCH ×2 (09:54→21:04)
[2020-12-02] MEDS: HEPARIN NA (PORCINE) 5,000 UNITS/ML 1ML VIAL SQ SCH ×2 (09:54→21:05)
[2020-12-02] MEDS ORDERED: ASPIRIN 325 MG TABLET PO SCH (10:00)
[2020-12-02] MEDS ORDERED: CEFEPIME 1 GM in DEXTROSE 5%-WATER 1 GM/100 ML BAG IVPB SCH (10:00)
[2020-12-02] MEDS ORDERED: TIOTROPIUM BROMIDE 2.5 MCG (SPIRIVA) RESPIMAT INHALER IH SCH (10:00)
[2020-12-02] MEDS ORDERED: CHOLECALCIFEROL (VIT D3) 5000 UNITS (125 MCG) CAP PO SCH (10:00)
[2020-12-02] MEDS: BUDESONIDE/FORMETEROL FUMARATE 80/4.5 mcg INHALER IH SCH ×2 (10:35→21:05)
[2020-12-02] MEDS ORDERED: AMIODARONE HCL INJECTION 150 MG in DEXTROSE 5%-WATER - 100 ML IVPB ONE (11:09)
[2020-12-02] MEDS ORDERED: ACETAMINOPHEN 325 MG TABLET (FP) PO PRN (11:09)
[2020-12-02] MEDS ORDERED: MAGNESIUM SULF 50% (8.12 MEQ/2 ML-1 GM VIAL) IVPB ONE (12:24)
[2020-12-02] MEDS ORDERED: TORSEMIDE 100 MG TABLET PO SCH (14:00)
[2020-12-02] MEDS ORDERED: VANCOMYCIN 1 GRAM (PRE-DOCKED) 1,000 MG/250 ML BAG IVPB ONE (15:43)
[2020-12-02] MEDS: INSULIN SLIDING SCALE (NOVOLOG) 1 VIAL SQ SCH ×2 (17:52→21:05)
[2020-12-02] MEDS: PREGABALIN 50 MG CAPSULE PO SCH ×2 (18:08→21:04)
[2020-12-02] MEDS: AMIODARONE HCL 200 MG TABLET PO SCH (21:04)
[2020-12-02] MEDS: ATORVASTATIN CA 40 MG TABLET (FP) PO SCH (21:04)
[2020-12-02] MEDS: CHLORHEXIDINE GLUCONATE 4% CLEANSER FOR DECOLONIZATION TP SCH (21:05)
[2020-12-02] MEDS ORDERED: PREGABALIN 25 MG CAPSULE PO SCH (22:00)
[2020-12-02] MEDS: NYSTATIN 100000 UNIT/GM TOPICAL OINTMENT 15 GM TUBE TP SCH (23:25)
[2020-12-03] MEDS ORDERED: PT OWN MED DRAWER 7, Y5N ONE ×3 (00:29→11:05)
[2020-12-03] MEDS: PREGABALIN 50 MG CAPSULE PO SCH ×3 (01:04→21:06)
[2020-12-03] MEDS: CLINDAMYCIN 600MG PREMIX IVPB 600 MG/50 ML BAG IVPB SCH ×3 (01:04→18:09)
[2020-12-03] MEDS: VASOPRESSIN 40 UNITS/100 ML BAG IV SCH ×2 (01:08→05:49)
[2020-12-03] MEDS: PERITONEAL DIALYSIS 2.5% SOLN 2,500 ML IP SCH ×4 (03:00→21:06)
[2020-12-03] MEDS: INSULIN SLIDING SCALE (NOVOLOG) 1 VIAL SQ SCH ×4 (06:00→21:05)
[2020-12-03 06:58] LABS: CHLORIDE 95 mmol/L (98-107); SODIUM 132 mmol/L (136-145)
[2020-12-03 07:01] LABS: CALCIUM 8.4 mg/dL (8.5-10.1)
[2020-12-03 07:02] LABS: ALBUMIN 1.6 g/dl (3.4-5.0); ANION GAP 13 MMOL/L (8-16); BLOOD UREA NITROGEN 37.3 mg/dL (7-18); CO2 23 mmol/L (21-32); GLUCOSE,RANDOM 295 mg/dL (74-106); MAGNESIUM 1.7 mg/dL (1.8-2.4)
[2020-12-03 07:04] LABS: PHOSPHOROUS 5.9 mg/dL (2.5-4.9); SGOT/AST 33 U/L (15-37); SGPT/ALT 17 U/L (13-61)
[2020-12-03 07:06] LABS: BILIRUBIN,TOTAL 0.4 mg/dL (0.2-1); TOT PROT 5.7 g/dl (6.4-8.2)
[2020-12-03 07:08] LABS: ALK PHOS 136 U/L (45-117); CREATININE 8.1 mg/dL (0.55-1.3)
[2020-12-03 07:31] LABS: HEMATOCRIT 32.4 % (35.4-49); HEMOGLOBIN 10.5 GM/dL (11.7-16.9); MCHC 32.5 g/dl (32.0-35.9); MEAN CELL VOLUME 95.6 fl (80-96); MEAN PLT VOLUME 8.8 fl (7.5-11.1); PLATELET COUNT 325 10^3/uL (134-434); RBC 3.38 M/mm3 (4.00-5.60); RDW 15.3 % (11.9-15.9); WHITE BLOOD COUNT 15.2 K/mm3 (4.0-10.0)
[2020-12-03] MEDS ORDERED: MAGNESIUM 1GM/D5W - 1 GM/100 ML IVPB IVPB ONE (08:30)
[2020-12-03] MEDS: SEVELAMER CARBONATE 800 MG TAB (FP) PO SCH ×3 (09:00→18:02)
[2020-12-03 09:25] LABS: ANISOCYTOSIS 0; MACROCYTOSIS 0; PLATELET ESTIMATE NORMAL
[2020-12-03] MEDS ORDERED: DEXTROSE 5%-WATER 100 ML IVPB ONE (09:29)
[2020-12-03] MEDS ORDERED: CEFEPIME HCL 1 GM VIAL (RESTRICTED TO ID) ONE (09:29)
[2020-12-03] MEDS: TAMSULOSIN HCL 0.4 MG CAP PO SCH (09:30)
[2020-12-03] MEDS: MUPIROCIN 2% TOPICAL OINTMENT FOR DECOLONIZATION NS SCH ×2 (09:33→21:06)
[2020-12-03] MEDS: ASPIRIN 325 MG TABLET PO SCH (09:33)
[2020-12-03] MEDS: TORSEMIDE 100 MG TABLET PO SCH (09:35)
[2020-12-03] MEDS: AMIODARONE HCL 200 MG TABLET PO SCH ×2 (09:35→21:06)
[2020-12-03] MEDS: POTASSIUM CHLORIDE TABS 20 MEQ TABLET.ER (FP) PO SCH (09:35)
[2020-12-03] MEDS: HEPARIN NA (PORCINE) 5,000 UNITS/ML 1ML VIAL SQ SCH ×2 (09:35→21:06)
[2020-12-03] MEDS: NYSTATIN 100000 UNIT/GM TOPICAL OINTMENT 15 GM TUBE TP SCH ×2 (09:36→21:06)
[2020-12-03] MEDS: CEFEPIME 1 GM in DEXTROSE 5%-WATER 1 GM/100 ML BAG IVPB SCH (09:36)
[2020-12-03] MEDS: MIDODRINE HCL 5 MG TABLET PO SCH ×3 (09:37→18:02)
[2020-12-03] MEDS: CHOLECALCIFEROL (VIT D3) 5000 UNITS (125 MCG) CAP PO SCH (09:37)
[2020-12-03] MEDS: TIOTROPIUM BROMIDE 2.5 MCG (SPIRIVA) RESPIMAT INHALER IH SCH (09:38)
[2020-12-03] MEDS: BUDESONIDE/FORMETEROL FUMARATE 80/4.5 mcg INHALER IH SCH ×2 (09:39→21:07)
[2020-12-03] MEDS: ACETAMINOPHEN 1000 MG/100 ML VIAL (NON FORMULARY) IVPB PRN ×2 (12:27→22:03)
[2020-12-03 14:53] LABS: CHLORIDE 95 mmol/L (98-107); CO2 26 mmol/L (21-32); CREATININE 7.8 mg/dL (0.55-1.3); GLUCOSE,RANDOM 294 mg/dL (74-106); SODIUM 132 mmol/L (136-145)
[2020-12-03 14:54] LABS: ALBUMIN 1.6 g/dl (3.4-5.0); ALK PHOS 133 U/L (45-117); BILIRUBIN,TOTAL 0.3 mg/dL (0.2-1); CALCIUM 8.5 mg/dL (8.5-10.1); PHOSPHOROUS 5.6 mg/dL (2.5-4.9); SGOT/AST 33 U/L (15-37); SGPT/ALT 16 U/L (13-61); TOT PROT 5.6 g/dl (6.4-8.2)
[2020-12-03] MEDS ORDERED: NOREPINEPHRINE BITARTRATE 16,000 MCG in SODIUM CHLORIDE 484 ML IV SCH (17:15)
[2020-12-03] MEDS: NOREPINEPHRINE NS PREMIX 16,000 MCG/500 ML BAG IVPB SCH (18:24)
[2020-12-03] MEDS: POTASSIUM CHLORIDE ORAL LIQUID 20 MEQ/15 ML PO SCH (21:05)
[2020-12-03] MEDS: CHLORHEXIDINE GLUCONATE 4% CLEANSER FOR DECOLONIZATION TP SCH (21:06)
[2020-12-03] MEDS: ATORVASTATIN CA 40 MG TABLET (FP) PO SCH (21:06)
[2020-12-04] MEDS: PREGABALIN 50 MG CAPSULE PO SCH ×2 (00:55→02:00)
[2020-12-04] MEDS: CLINDAMYCIN 600MG PREMIX IVPB 600 MG/50 ML BAG IVPB SCH ×3 (01:21→17:09)
[2020-12-04] MEDS: VASOPRESSIN 40 UNITS/100 ML BAG IV SCH ×3 (01:21→22:00)
[2020-12-04] MEDS: PERITONEAL DIALYSIS 2.5% SOLN 2,500 ML IP SCH ×2 (02:40→09:30)
[2020-12-04] MEDS: INSULIN SLIDING SCALE (NOVOLOG) 1 VIAL SQ SCH ×4 (06:15→21:16)
[2020-12-04 06:43] LABS: HEMATOCRIT 33.8 % (35.4-49); HEMOGLOBIN 10.9 GM/dL (11.7-16.9); MCH 30.9 pg (25.7-33.7); MCHC 32.3 g/dl (32.0-35.9); MEAN CELL VOLUME 95.7 fl (80-96); MEAN PLT VOLUME 9.4 fl (7.5-11.1); PLATELET COUNT 349 10^3/uL (134-434); RBC 3.53 M/mm3 (4.00-5.60); RDW 15.1 % (11.9-15.9); WHITE BLOOD COUNT 16.7 K/mm3 (4.0-10.0)
[2020-12-04] MEDS: SEVELAMER CARBONATE 800 MG TAB (FP) PO SCH (07:31)
[2020-12-04] MEDS: TAMSULOSIN HCL 0.4 MG CAP PO SCH (07:32)
[2020-12-04 07:36] LABS: BLOOD UREA NITROGEN 37.7 mg/dL (7-18); CHLORIDE 95 mmol/L (98-107); CREATININE 7.6 mg/dL (0.55-1.3); GLUCOSE,RANDOM 317 mg/dL (74-106); SODIUM 132 mmol/L (136-145)
[2020-12-04 07:37] LABS: ALBUMIN 1.7 g/dl (3.4-5.0); ANION GAP 12 MMOL/L (8-16); BILIRUBIN,TOTAL 0.4 mg/dL (0.2-1); CALCIUM 8.7 mg/dL (8.5-10.1); CO2 25 mmol/L (21-32); PHOSPHOROUS 5.6 mg/dL (2.5-4.9); SGOT/AST 24 U/L (15-37); TOT PROT 5.9 g/dl (6.4-8.2)
[2020-12-04 07:38] LABS: ALK PHOS 140 U/L (45-117); SGPT/ALT 16 U/L (13-61)
[2020-12-04] MEDS ORDERED: DEXTROSE 5%-WATER 100 ML IVPB ONE (09:35)
[2020-12-04] MEDS ORDERED: CEFEPIME HCL 1 GM VIAL (RESTRICTED TO ID) ONE (09:35)
[2020-12-04] MEDS: ACETAMINOPHEN 1000 MG/100 ML VIAL (NON FORMULARY) IVPB PRN (09:38)
[2020-12-04] MEDS: AMIODARONE HCL 200 MG TABLET PO SCH (09:39)
[2020-12-04] MEDS: CEFEPIME 1 GM in DEXTROSE 5%-WATER 1 GM/100 ML BAG IVPB SCH (09:39)
[2020-12-04] MEDS: ASPIRIN 325 MG TABLET PO SCH (09:44)
[2020-12-04] MEDS: TORSEMIDE 100 MG TABLET PO SCH (09:44)
[2020-12-04] MEDS: HEPARIN NA (PORCINE) 5,000 UNITS/ML 1ML VIAL SQ SCH ×2 (09:44→21:16)
[2020-12-04] MEDS: NYSTATIN 100000 UNIT/GM TOPICAL OINTMENT 15 GM TUBE TP SCH ×2 (09:45→21:17)
[2020-12-04] MEDS: POTASSIUM CHLORIDE ORAL LIQUID 20 MEQ/15 ML PO SCH (09:46)
[2020-12-04] MEDS: MIDODRINE HCL 5 MG TABLET PO SCH (09:46)
[2020-12-04] MEDS: TIOTROPIUM BROMIDE 2.5 MCG (SPIRIVA) RESPIMAT INHALER IH SCH (09:46)
[2020-12-04] MEDS: CHOLECALCIFEROL (VIT D3) 5000 UNITS (125 MCG) CAP PO SCH (09:47)
[2020-12-04] MEDS: BUDESONIDE/FORMETEROL FUMARATE 80/4.5 mcg INHALER IH SCH ×2 (09:47→21:17)
[2020-12-04] MEDS: MUPIROCIN 2% TOPICAL OINTMENT FOR DECOLONIZATION NS SCH ×2 (09:52→21:16)
[2020-12-04] MEDS ORDERED: PERITONEAL DIALYSIS 4.25% SOL 2,500 ML IP SCH (10:30)
[2020-12-04 11:05] LABS: ANISOCYTOSIS 0; HELMET CELLS 0; HOWELL-JOLLY BODIES 0; MACROCYTOSIS 0; OVALOCYTE 0; PLATELET ESTIMATE NORMAL; ROULEAU 0; SICKELED CELLS 0; TARGET CELLS 0; TEAR DROP CELLS 0; TOXIC GRANULATION 0
[2020-12-04] MEDS: PERITONEAL DIALYSIS 4.25% SOL 2,500 ML IP SCH ×2 (15:33→21:16)
[2020-12-04] MEDS ORDERED: PT OWN MED DRAWER 7, Y5N ONE (21:13)
[2020-12-04] MEDS: NOREPINEPHRINE NS PREMIX 16,000 MCG/500 ML BAG IVPB SCH (21:16)
[2020-12-04] MEDS: CHLORHEXIDINE GLUCONATE 4% CLEANSER FOR DECOLONIZATION TP SCH (21:17)
[2020-12-05] MEDS: CLINDAMYCIN 600MG PREMIX IVPB 600 MG/50 ML BAG IVPB SCH ×3 (01:31→17:46)
[2020-12-05] MEDS: VASOPRESSIN 40 UNITS/100 ML BAG IV SCH (02:20)
[2020-12-05] MEDS: PERITONEAL DIALYSIS 4.25% SOL 2,500 ML IP SCH ×4 (03:00→21:39)
[2020-12-05] MEDS: INSULIN SLIDING SCALE (NOVOLOG) 1 VIAL SQ SCH ×4 (06:18→21:43)
[2020-12-05 06:38] LABS: HEMATOCRIT 33.7 % (35.4-49); MCH 31.1 pg (25.7-33.7); MCHC 32.6 g/dl (32.0-35.9); MEAN CELL VOLUME 95.6 fl (80-96); MEAN PLT VOLUME 9.1 fl (7.5-11.1); PLATELET COUNT 398 10^3/uL (134-434); RBC 3.52 M/mm3 (4.00-5.60); RDW 15.1 % (11.9-15.9)
[2020-12-05 06:52] LABS: CHLORIDE 98 mmol/L (98-107); SODIUM 134 mmol/L (136-145)
[2020-12-05 07:01] LABS: ALBUMIN 1.7 g/dl (3.4-5.0); CALCIUM 8.8 mg/dL (8.5-10.1)
[2020-12-05 07:02] LABS: ANION GAP 13 MMOL/L (8-16); BLOOD UREA NITROGEN 35.6 mg/dL (7-18); CO2 23 mmol/L (21-32); GLUCOSE,RANDOM 285 mg/dL (74-106); MAGNESIUM 2.2 mg/dL (1.8-2.4)
[2020-12-05 07:05] LABS: PHOSPHOROUS 6.2 mg/dL (2.5-4.9); SGOT/AST 24 U/L (15-37); SGPT/ALT 14 U/L (13-61)
[2020-12-05 07:06] LABS: BILIRUBIN,TOTAL 0.5 mg/dL (0.2-1); TOT PROT 5.9 g/dl (6.4-8.2)
[2020-12-05 07:07] LABS: ALK PHOS 142 U/L (45-117)
[2020-12-05 07:18] LABS: CREATININE 7.6 mg/dL (0.55-1.3)
[2020-12-05] MEDS ORDERED: BUDESONIDE 0.25 MG/2ML INH SUSP VIAL NEB ONE (08:17)
[2020-12-05] MEDS ORDERED: CEFEPIME HCL 1 GM VIAL (RESTRICTED TO ID) ONE (09:28)
[2020-12-05] MEDS ORDERED: DEXTROSE 5%-WATER 100 ML IVPB ONE (09:29)
[2020-12-05 09:40] LABS: ANISOCYTOSIS 0; MACROCYTOSIS 0; PLATELET ESTIMATE NORMAL
[2020-12-05] MEDS: ASPIRIN 325 MG TABLET PO SCH (09:50)
[2020-12-05] MEDS: CEFEPIME 1 GM in DEXTROSE 5%-WATER 1 GM/100 ML BAG IVPB SCH (09:51)
[2020-12-05] MEDS: HEPARIN NA (PORCINE) 5,000 UNITS/ML 1ML VIAL SQ SCH ×2 (09:51→21:38)
[2020-12-05] MEDS: TAMSULOSIN HCL 0.4 MG CAP PO SCH (09:51)
[2020-12-05] MEDS: MUPIROCIN 2% TOPICAL OINTMENT FOR DECOLONIZATION NS SCH ×2 (09:51→21:40)
[2020-12-05] MEDS: NYSTATIN 100000 UNIT/GM TOPICAL OINTMENT 15 GM TUBE TP SCH ×2 (09:52→21:40)
[2020-12-05] MEDS: TIOTROPIUM BROMIDE 2.5 MCG (SPIRIVA) RESPIMAT INHALER IH SCH (09:56)
[2020-12-05] MEDS: BUDESONIDE/FORMETEROL FUMARATE 80/4.5 mcg INHALER IH SCH ×2 (09:56→21:43)
[2020-12-05] MEDS ORDERED: ACETAMINOPHEN 325 MG TABLET (FP) PO PRN (15:28)
[2020-12-05] MEDS ORDERED: ESCITALOPRAM OXALATE 20 MG TABLET PO SCH (15:30)
[2020-12-05] MEDS: ACETAMINOPHEN 500 MG TABLET (FP) PO PRN (16:31)
[2020-12-05] MEDS: ESCITALOPRAM OXALATE 10 MG TABLET PO SCH (17:38)
[2020-12-05] MEDS: LIDOCAINE 5% TOPICAL PATCH TP SCH (17:43)
[2020-12-05] MEDS: NOREPINEPHRINE NS PREMIX 16,000 MCG/500 ML BAG IVPB SCH ×2 (17:44→22:35)
[2020-12-05] MEDS ORDERED: PT OWN MED DRAWER 7, Y5N ONE ×2 (21:33→23:24)
[2020-12-05] MEDS: CHLORHEXIDINE GLUCONATE 4% CLEANSER FOR DECOLONIZATION TP SCH (21:40)
[2020-12-05] MEDS: LIDOCAINE PATCH REMOVAL MC SCH (21:40)
[2020-12-05] MEDS ORDERED: LIDOCAINE PATCH REMOVAL MC SCH ×2 (22:00)
[2020-12-06] MEDS ORDERED: morphine SULFATE 4 MG/ML VIAL IVPUSH ONE ×2 (02:11→02:30)
[2020-12-06] MEDS: CLINDAMYCIN 600MG PREMIX IVPB 600 MG/50 ML BAG IVPB SCH ×3 (02:30→17:10)
[2020-12-06] MEDS: VASOPRESSIN 40 UNITS/100 ML BAG IV SCH (02:31)
[2020-12-06] MEDS ORDERED: morphine CARPU-JECT 4 MG/1 ML DISP.SYRIN IVPUSH PRN (03:00)
[2020-12-06] MEDS: PERITONEAL DIALYSIS 4.25% SOL 2,500 ML IP SCH ×4 (03:24→21:31)
[2020-12-06 06:05] LABS: HEMATOCRIT 34.6 % (35.4-49); HEMOGLOBIN 11.1 GM/dL (11.7-16.9); MCH 30.5 pg (25.7-33.7); MCHC 32.1 g/dl (32.0-35.9); MEAN PLT VOLUME 8.9 fl (7.5-11.1); PLATELET COUNT 416 10^3/uL (134-434); RBC 3.64 M/mm3 (4.00-5.60); RDW 14.8 % (11.9-15.9); WHITE BLOOD COUNT 17.8 K/mm3 (4.0-10.0)
[2020-12-06] MEDS: INSULIN SLIDING SCALE (NOVOLOG) 1 VIAL SQ SCH ×4 (06:18→21:33)
[2020-12-06] MEDS: INSULIN (LEVEMIR) 100 UNITS/ML UNITS SQ SCH (06:18)
[2020-12-06 06:26] LABS: CHLORIDE 99 mmol/L (98-107); SODIUM 136 mmol/L (136-145)
[2020-12-06 06:28] LABS: CALCIUM 8.5 mg/dL (8.5-10.1)
[2020-12-06 06:29] LABS: ALBUMIN 1.6 g/dl (3.4-5.0); ANION GAP 12 MMOL/L (8-16); CO2 26 mmol/L (21-32); GLUCOSE,RANDOM 286 mg/dL (74-106); MAGNESIUM 1.9 mg/dL (1.8-2.4)
[2020-12-06 06:32] LABS: SGOT/AST 17 U/L (15-37); SGPT/ALT 14 U/L (13-61)
[2020-12-06 06:34] LABS: BILIRUBIN,TOTAL 0.2 mg/dL (0.2-1); TOT PROT 5.8 g/dl (6.4-8.2)
[2020-12-06 06:35] LABS: ALK PHOS 148 U/L (45-117)
[2020-12-06 06:37] LABS: BLOOD UREA NITROGEN 38.9 mg/dL (7-18); CREATININE 7.8 mg/dL (0.55-1.3)
[2020-12-06] MEDS ORDERED: KCL 10 MEQ IVPB 10 MEQ/100 ML INFUS.BAG IVPB SCH (08:15)
[2020-12-06 08:29] LABS: ANISOCYTOSIS 0; HELMET CELLS 0; HOWELL-JOLLY BODIES 0; MACROCYTOSIS 0; OVALOCYTE 0; PLATELET ESTIMATE NORMAL; ROULEAU 0; SICKELED CELLS 0; TARGET CELLS 0; TEAR DROP CELLS 0; TOXIC GRANULATION 0
[2020-12-06] MEDS ORDERED: DEXTROSE 5%-WATER 100 ML IVPB ONE (10:27)
[2020-12-06] MEDS: ASPIRIN 325 MG TABLET PO SCH (10:28)
[2020-12-06] MEDS: TAMSULOSIN HCL 0.4 MG CAP PO SCH (10:28)
[2020-12-06] MEDS: MUPIROCIN 2% TOPICAL OINTMENT FOR DECOLONIZATION NS SCH (10:29)
[2020-12-06] MEDS: ESCITALOPRAM OXALATE 10 MG TABLET PO SCH (10:30)
[2020-12-06] MEDS: CEFTRIAXONE 2 GM in DEXTROSE 5%-WATER 2 GM/100 ML BAG IVPB SCH (10:30)
[2020-12-06] MEDS: LIDOCAINE 5% TOPICAL PATCH TP SCH (10:30)
[2020-12-06] MEDS: NYSTATIN 100000 UNIT/GM TOPICAL OINTMENT 15 GM TUBE TP SCH ×2 (10:30→21:31)
[2020-12-06] MEDS: HEPARIN NA (PORCINE) 5,000 UNITS/ML 1ML VIAL SQ SCH ×2 (10:30→21:30)
[2020-12-06] MEDS: TIOTROPIUM BROMIDE 2.5 MCG (SPIRIVA) RESPIMAT INHALER IH SCH (10:31)
[2020-12-06] MEDS: BUDESONIDE/FORMETEROL FUMARATE 80/4.5 mcg INHALER IH SCH ×2 (10:31→21:32)
[2020-12-06] MEDS: KCL 10 MEQ IVPB 10 MEQ/100 ML INFUS.BAG IVPB SCH ×3 (12:35→14:48)
[2020-12-06] MEDS: ACETAMINOPHEN 500 MG TABLET (FP) PO PRN (12:44)
[2020-12-06] MEDS ORDERED: morphine SULFATE 4 MG/ML VIAL IVPUSH PRN (20:11)
[2020-12-06] MEDS: NOREPINEPHRINE NS PREMIX 16,000 MCG/500 ML BAG IVPB SCH (21:30)
[2020-12-06] MEDS: CHLORHEXIDINE GLUCONATE 4% CLEANSER FOR DECOLONIZATION TP SCH (21:31)
[2020-12-06] MEDS: LIDOCAINE PATCH REMOVAL MC SCH (21:32)
[2020-12-07] MEDS: CLINDAMYCIN 600MG PREMIX IVPB 600 MG/50 ML BAG IVPB SCH ×2 (01:18→09:14)
[2020-12-07] MEDS: VASOPRESSIN 40 UNITS/100 ML BAG IV SCH (02:47)
[2020-12-07] MEDS: PERITONEAL DIALYSIS 4.25% SOL 2,500 ML IP SCH ×2 (02:47→09:00)
[2020-12-07 06:01] VITALS: TEMP 97.6
[2020-12-07] MEDS: INSULIN (LEVEMIR) 100 UNITS/ML UNITS SQ SCH (06:01)
[2020-12-07] MEDS: INSULIN SLIDING SCALE (NOVOLOG) 1 VIAL SQ SCH ×2 (06:03→10:37)
[2020-12-07 06:38] LABS: HEMATOCRIT 35.3 % (35.4-49); HEMOGLOBIN 11.4 GM/dL (11.7-16.9); MCH 30.7 pg (25.7-33.7); MCHC 32.4 g/dl (32.0-35.9); MEAN CELL VOLUME 94.9 fl (80-96); MEAN PLT VOLUME 9.1 fl (7.5-11.1); PLATELET COUNT 421 10^3/uL (134-434); RBC 3.72 M/mm3 (4.00-5.60); RDW 14.7 % (11.9-15.9); WHITE BLOOD COUNT 18.5 K/mm3 (4.0-10.0)
[2020-12-07] MEDS ORDERED: MORPHINE SULFATE/0.9% NACL/PF 100 MG/100 ML BAG IVPB SCH (06:46)
[2020-12-07 06:53] LABS: CHLORIDE 100 mmol/L (98-107); SODIUM 137 mmol/L (136-145)
[2020-12-07 06:56] LABS: CALCIUM 9.1 mg/dL (8.5-10.1)
[2020-12-07 06:57] LABS: ANION GAP 11 MMOL/L (8-16); CO2 26 mmol/L (21-32); GLUCOSE,RANDOM 280 mg/dL (74-106)
[2020-12-07 06:58] LABS: ALBUMIN 1.6 g/dl (3.4-5.0); BLOOD UREA NITROGEN 39.6 mg/dL (7-18)
[2020-12-07 07:00] LABS: SGOT/AST 28 U/L (15-37); SGPT/ALT 14 U/L (13-61)
[2020-12-07 07:01] LABS: BILIRUBIN,TOTAL 0.3 mg/dL (0.2-1); TOT PROT 5.6 g/dl (6.4-8.2)
[2020-12-07 07:02] LABS: ALK PHOS 142 U/L (45-117); PHOSPHOROUS 5.7 mg/dL (2.5-4.9)
[2020-12-07 07:24] LABS: ARTERIAL BLD GAS O2 SATURATION 93.3 % (95-98); ARTERIAL BLOOD GAS BASE EXCESS -3.8 mmol/L (-2-2); ARTERIAL BLOOD GAS PO2 73.4 mmHg (80-100); ARTERIAL BLOOD GAS pH 7.302 (7.350-7.450)
[2020-12-07 07:30] LABS: ALLENS TEST POSITIVE
[2020-12-07 07:56] LABS: CREATININE 7.8 mg/dL (0.55-1.3)
[2020-12-07] MEDS: TAMSULOSIN HCL 0.4 MG CAP PO SCH (09:09)
[2020-12-07] MEDS: ESCITALOPRAM OXALATE 10 MG TABLET PO SCH (09:10)
[2020-12-07] MEDS: LIDOCAINE 5% TOPICAL PATCH TP SCH (09:10)
[2020-12-07] MEDS: ASPIRIN 325 MG TABLET PO SCH (09:10)
[2020-12-07] MEDS: TIOTROPIUM BROMIDE 2.5 MCG (SPIRIVA) RESPIMAT INHALER IH SCH (09:11)
[2020-12-07] MEDS: BUDESONIDE/FORMETEROL FUMARATE 80/4.5 mcg INHALER IH SCH (09:11)
[2020-12-07] MEDS: CEFTRIAXONE 2 GM in DEXTROSE 5%-WATER 2 GM/100 ML BAG IVPB SCH (09:13)
[2020-12-07] MEDS ORDERED: DEXTROSE 5%-WATER 100 ML IVPB ONE (09:13)
[2020-12-07] MEDS: HEPARIN NA (PORCINE) 5,000 UNITS/ML 1ML VIAL SQ SCH (09:14)
[2020-12-07 10:20] LABS: ANISOCYTOSIS 0; HELMET CELLS 0; HOWELL-JOLLY BODIES 0; MACROCYTOSIS 0; OVALOCYTE 0; PLATELET ESTIMATE NORMAL; ROULEAU 0; SICKELED CELLS 0; TARGET CELLS 0; TEAR DROP CELLS 0; TOXIC GRANULATION 0
[2020-12-07] MEDS: NYSTATIN 100000 UNIT/GM TOPICAL OINTMENT 15 GM TUBE TP SCH (10:36)
[2020-12-07 11:22] VITALS: BP 100/54; PULSE 55
== END 2020-12-07 21:14 | disposition expired | DRG 853 ==
LOC: JER 08:46 → JERBED 11:47 → J4S 20:46 → JICU 12-01 17:51
PROVIDERS: ADMIT Internal Medicine; ATTEND Internal Medicine Pulmonary Disease
PROC: 0MBT0ZZ Excision of Left Foot Bursa and Ligament, Open Approach (ICD-10-PCS; 2020-12-01)
PROC: 0QBP0ZX Excision of Left Metatarsal, Open Approach, Diagnostic (ICD-10-PCS; 2020-12-01)
PROC: 3E10X8Z Irrigation of Skin and Mucous Membranes using Irrigating Substance (ICD-10-PCS; 2020-12-01)
PROC: 0Y6Y0Z0 Detachment at Left 5th Toe, Complete, Open Approach (ICD-10-PCS; principal; 2020-12-01 11:00)
PROC: 0KBW0ZZ Excision of Left Foot Muscle, Open Approach (ICD-10-PCS; 2020-12-03)
PROC: 3E10X8Z Irrigation of Skin and Mucous Membranes using Irrigating Substance (ICD-10-PCS; 2020-12-03)
PROC: 05HM33Z Insertion of Infusion Device into Right Internal Jugular Vein, Percutaneous Approach (ICD-10-PCS; 2020-12-04)
PROC: B513ZZA Fluoroscopy of Right Jugular Veins, Guidance (ICD-10-PCS; 2020-12-04)
DX: A40.1 Sepsis due to streptococcus, group B (principal); R65.21 Severe sepsis with septic shock; N18.6 End stage renal disease; M72.6 Necrotizing fasciitis; E87.1 Hypo-osmolality and hyponatremia; L03.116 Cellulitis of left lower limb; I24.8 Other forms of acute ischemic heart disease; I96 Gangrene, not elsewhere classified; E11.52 Type 2 diabetes mellitus with diabetic peripheral angiopathy with gangrene; M86.172 Other acute osteomyelitis, left ankle and foot; I13.11 Hypertensive heart and chronic kidney disease without heart failure, with stage 5 chronic kidney disease, or end stage renal disease; L97.528 Non-pressure chronic ulcer of other part of left foot with other specified severity; K56.609 Unspecified intestinal obstruction, unspecified as to partial versus complete obstruction; J96.11 Chronic respiratory failure with hypoxia; E11.621 Type 2 diabetes mellitus with foot ulcer; E11.22 Type 2 diabetes mellitus with diabetic chronic kidney disease; I48.91 Unspecified atrial fibrillation; J44.9 Chronic obstructive pulmonary disease, unspecified; E11.42 Type 2 diabetes mellitus with diabetic polyneuropathy; E11.69 Type 2 diabetes mellitus with other specified complication; E87.6 Hypokalemia; L08.9 Local infection of the skin and subcutaneous tissue, unspecified; I95.9 Hypotension, unspecified; F32.A Depression, unspecified; I25.119 Atherosclerotic heart disease of native coronary artery with unspecified angina pectoris; B95.1 Streptococcus, group B, as the cause of diseases classified elsewhere; R77.8 Other specified abnormalities of plasma proteins; E83.39 Other disorders of phosphorus metabolism; E83.42 Hypomagnesemia; D72.829 Elevated white blood cell count, unspecified; K59.00 Constipation, unspecified; I35.0 Nonrheumatic aortic (valve) stenosis; I46.9 Cardiac arrest, cause unspecified; Z68.37 Body mass index [BMI] 37.0-37.9, adult; E66.9 Obesity, unspecified; Z88.0 Allergy status to penicillin
CPT/HCPCS: 36415; 36600; 71045-TC-FY; 73070-TC-RT-FY; 73630-TC-LT; 74021-TC-FY; 80048; 80053; 80061; 82550; 82553; 82803; 82962; 83036; 83605; 83735; 84100; 84443; 84484; 85025; 85610; 85730; 87040; 87070; 87075; 87077; 87186; 87205; 87804; 88304-TC; 88305-TC; 88311-TC; 93005; 93010; 93306-TC; 93922; 93925-TC; 94660; 94760; 97116-GP; 97161-GP; 99285-25; C9803; G0480; J0131; J0282; J1644; J3490; U0003; U0005